=== PATIENT | female | born 1945 | race Caucasian/White ===

== ENCOUNTER 2024-10-24 23:07 | Emergency (ER) | payer BC, MEDICARE ==
[~2024-10-24] VITALS: Ht 154.9 cm; Wt 59.0 kg
[2024-10-24 23:18] VITALS: BP 168/82; TEMP 98
[2024-10-25] VITALS: O2SAT 96
== END 2024-10-25 00:01 | disposition home or self-care (01) ==
LOC: ER 23:11
DX: Z97.3 Presence of spectacles and contact lenses (principal); Z88.0 Allergy status to penicillin; W44.G9XA Other non-organic objects entering into or through a natural orifice, initial encounter; Y93.89 Activity, other specified; Y92.89 Other specified places as the place of occurrence of the external cause; Y99.8 Other external cause status